=== PATIENT | male | born 1940 | race Hispanic/Latino ===

== ENCOUNTER → 2017-03-16 | Outpatient (CLI) | payer MEDICARE ==
[~2017-03-16] MED LIST: AMLODIPINE BESYL5 MG PO; ASPIRIN325 MG PO; CALCIUM 500+D1 EACH PO; HYDROCHLOROTHIA25 MG PO; LANSOPRAZOLE30 MG PO; LEVOTHYROXINE75 MCG PO; METFORMIN HCL500 MG PO; METOPROLOL SUCC50 MG PO; VITAMIN D1000 UNI1 PO
--- NOTE | 2017-03-16 10:48 | Diagnostic Imaging Report ---
PROCEDURE: X-RAY CHEST, TWO VIEWS COMPARISON: 10/13/2015. INDICATIONS: COUGH FINDINGS: Lungs remain well-inflated. No focal airspace consolidation, pleural effusion, or pneumothorax. Stable cardiomediastinal contour without pulmonary edema. No acute osseous abnormality. Healed right fifth rib posterior fracture deformity is unchanged. CONCLUSION: No acute cardiopulmonary abnormality. Dictated by: Angel Burt M.D. on 03/16/2017 at 10:56 Electronically approved by: Angel Burt M.D. on 03/16/2017 at 10:56
== END ==
LOC: RAD 10:09
PROVIDERS: ATTEND Internal Medicine
DX: R05 Cough (principal)
CPT/HCPCS: 71020

== ENCOUNTER → 2017-04-28 | Outpatient (CLI) | payer MEDICARE ==
--- NOTE | 2017-04-28 09:02 | Diagnostic Imaging Report ---
EXAM: DXA BONE DENSITY INDICATIONS: Vitamin D deficiency/ Osteopenia of spine COMPARISON: April 08, 2015; May 01, 2013. FINDINGS: Left femoral neck bone mineral density (BMD) (g/cm2):0.702 Femur T-score (standard deviation relative to young adult mean BMD): -2.1 Femur Z-score (standard deviation relative to age-matched control group):-0.7 Change since prior exam (%):+3.1%. Change since baseline exam (%):+1.5% Lumbar bone mineral density (BMD) (g/cm2):1.146 Lumbar T-score (standard deviation relative to young adult mean BMD): 0.5 Lumbar Z-score (standard deviation relative to age-matched control group):1.6 Change since prior exam (%):-4.7% Change since baseline exam (%):-1.3% CONCLUSION: 1. WHO bone mineral classification: Low bone mass (osteopenia) 2. There is a statistically significant decrease in bone mineral density of the lumbar spine relative to the baseline study. RECOMMENDATIONS: Normal \T\ Low bone mass: Calcium supplementation, daily multiple vitamins, and adequate exercise as preventive measures against osteoporosis. Osteoporosis \T\ Severe Osteoporosis: In addition to the above, pharmacologic therapy. Dictated by: Garett Marie M.D. on 04/28/2017 at 9:01 Electronically approved by: Garett Marie M.D. on 04/28/2017 at 9:01
== END ==
LOC: DX 08:15
PROVIDERS: ATTEND Internal Medicine
DX: E55.9 Vitamin D deficiency, unspecified (principal); M85.88 Other specified disorders of bone density and structure, other site
CPT/HCPCS: 77080

== ENCOUNTER → 2018-10-01 | Outpatient (CLI) | payer MEDICARE ==
--- NOTE | 2018-10-01 09:26 | Diagnostic Imaging Report ---
EXAMINATION: CHEST 2 VIEWS INDICATION: Shortness of breath COMPARISON: None FINDINGS: TUBES and LINES: None. LUNGS: The lungs are well-inflated. Mild subsegmental atelectasis at the left lung base. PLEURA: No pleural effusion or pneumothorax. HEART AND MEDIASTINUM: The cardiomediastinal silhouette is normal in size and contour. Atherosclerotic calcifications of the thoracic aorta. BONES AND SOFT TISSUES: Age indeterminate fracture of the right fifth posterior lateral rib with approximately one shaft width inferior displacement of the distal fracture fragment. UPPER ABDOMEN: No free air under the diaphragm. IMPRESSION: No focal pneumonia or pulmonary edema. Subsegmental atelectasis at the left lung base. Age-indeterminate displaced fracture of the right fifth posterolateral rib. Signed by: Pierre Garcia MD on 10/01/2018 9:23 AM
== END ==
LOC: RAD 08:43
PROVIDERS: ATTEND Internal Medicine
DX: I27.0 Primary pulmonary hypertension (principal); R06.02 Shortness of breath
CPT/HCPCS: 71046

== ENCOUNTER → 2018-12-25 | Outpatient (CLI) | payer MEDICARE ==
--- NOTE | 2018-12-25 09:27 | Diagnostic Imaging Report ---
EXAMINATION: CHEST 2 VIEWS INDICATION: Pulmonary edema COMPARISON: Chest radiograph of 10/01/2018 FINDINGS: LINES/TUBES:None LUNGS:The lungs are mildly hyperinflated. No focal consolidation or pulmonary edema. Mild bibasilar subsegmental atelectasis. PLEURA:No pleural effusion or pneumothorax. MEDIASTINUM:The cardiomediastinal silhouette appears normal in size and shape. BONES/SOFT TISSUES:Unchanged alignment of prior right posterolateral fifth rib fracture. ABDOMEN:No free air under the diaphragm. IMPRESSION: Mildly hyperinflated lungs. No focal pneumonia or pulmonary edema. Signed by: Pierre Garcia MD on 12/25/2018 9:24 AM
== END ==
LOC: RAD 08:34
PROVIDERS: ATTEND Internal Medicine
DX: R60.0 Localized edema (principal)
CPT/HCPCS: 71046